=== PATIENT | male | born 1985 | race Caucasian/White ===

== ENCOUNTER 2017-01-01 09:52 | Emergency (ER) | payer OTHER, MEDICAID ==
[2017-01-01 10:00] VITALS: RESP 18
--- NOTE | 2017-01-01 10:18 | EDPHY ---
H & P Time Seen by Provider: 01/01/17 10:09 HPI/ROS: CHIEF COMPLAINT: Possible glass foreign body left forefoot HISTORY OF PRESENT ILLNESS: 31-year-old male history of diabetes, up-to-date tetanus, states that 3 days ago while he was barefoot he stepped on a piece of glass sustaining a puncture wound to his left medial forefoot. He went to urgent care "but they didn't do anything." He is complaining of continued pain at this area. His mother Removed pieces of glass in believe there is a retained piece of glass in this area. He is able to bear weight albeit with localized pain in this area. Denies erythema. Denies lymphangitic streaking. PRIMARY CARE PROVIDER: [facility] in [place] PHYSICAL EXAM (Prior to examination, patient consented to physical exam, hands were washed and my usual and customary physical exam procedures followed) 1) GENERAL: Well-developed, well-nourished, alert and oriented. Appears to be in no acute distress. 2) HEAD: Normocephalic 3) HEENT: sclera anicteric 4) LUNGS: Breathing comfortably. 5) SKIN: abrasion to the left plantar foot 6) MUSCULOSKELETAL: left foot: On the medial forefoot there is an abrasion measuring 1.5 cm. It is locally tender. There is no erythema. No crepitus. No discharge. No visible or palpable foreign body. There is no lymphangitic streaking. DP PT pulses are present and brisk with brisk capillary refill Smoking Status: Never smoked Constitutional: Initial Vital Signs Temperature (C) 36.6 C 01/01/17 09:57 Heart Rate 82 01/01/17 09:57 Respiratory Rate 18 01/01/17 09:57 Blood Pressure 141/86 H 01/01/17 09:57 O2 Sat (%) 97 01/01/17 09:57 O2 Delivery Mode Room Air Allergies/Adverse Reactions: latex Allergy (Verified 07/24/15 10:19) Sulfa (Sulfonamide Antibiotics) Allergy (Verified 07/24/15 10:19) Home Medications: Medication Instructions Recorded Canagliflozin [Invokana] 300 mg PO DAILY 01/01/17 Cephalexin [Keflex] 500 mg PO TID 5 Days 01/01/17 Divalproex ER [Depakote ER 500 MG 500 mg PO 01/01/17 (*)] PARoxetine CR [Paxil Cr 25mg (*)] 25 mg PO 01/01/17 Trigenta 01/01/17 metFORMIN HCL [Glucophage 500 mg 500 mg PO 01/01/17 (*)] MDM/Departure - MDM Imaging Results: Imaging Impressions Foot X-Ray 01/01/17 10:09 Impression: No radio opaque foreign material identified. Images reviewed by myself ED Course/Re-evaluation: Patient was re-evaluated with serial exams. Discussed the imaging results. We discussed possibility radiolucent foreign body. At this time I do not think that the benefits of wound exploration outweigh the risks I think that this would more than likely cause unnecessary tissue damage. He has a history of diabetes with no history of peripheral neuropathy. I recommended twice daily wound checks and am starting him on prophylactic antibiotics given his history of diabetes. Doubt Pseudomonas as he was barefoot at time of incident. I recommend he follow up with Podiatry on-call Dr. Finn Bell. Given usual customary wound precautions and instructions. All questions and concerns addressed by myself - Depart Disposition: Home, Routine, Self-Care Clinical Impression: Puncture wound of right foot Qualifiers: Encounter type: initial encounter Qualified Code(s): S91.331A - Puncture wound without foreign body, right foot, initial encounter Condition: Good Instructions: Puncture Wound (ED) Additional Instructions: Return to the ER if you develop redness, swelling, discharge, warmth to the wound, red streaks going up your leg, or any other symptoms that concern you. Prescriptions: Cephalexin [Keflex] 500 mg PO TID 5 Days Referrals: Finn Bell DPM [Doctor of Podiatric Medicine] - 2-3 days, call for appt.
[2017-01-01 11:24] VITALS: BP 131/84; PULSE 89; TEMP 98.2; O2SAT 95
== END 2017-01-01 11:23 | disposition home or self-care (01) ==
DX: S91.331A Puncture wound without foreign body, right foot, initial encounter (principal); E11.9 Type 2 diabetes mellitus without complications; Z79.84 Long term (current) use of oral hypoglycemic drugs; Z91.040 Latex allergy status; W25.XXXA Contact with sharp glass, initial encounter